=== PATIENT | male | born 1935 | race Caucasian/White ===

== ENCOUNTER 2016-12-08 09:36 | Emergency (ER) | payer MEDICARE, BC ==
--- NOTE | 2016-12-08 10:48 | EDM.PDOC ---
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 He states that he has had bilateral lower extremity neuropathy, as well as bilateral upper extremity neuropathy, in a stocking-glove pattern for the past 3 or 4 years, thought secondary to chemotherapy him and as such, he ordinarily walks with a cane, however, he is now having difficulty doing that. He discussed his thigh weakness with his Oncologist, Dr. Hinds, on Wednesday, 2016. No tests were done, but physical therapy was recommended, which the patient underwent one week ago, 12/01/2016. The patient states that the physical therapist found atrophy. Ultrasound therapy was given, which the patient states made his symptoms worse - he states that he was able to walk into the physical therapy facility, but not out. He then followed up with his PCP, Yolanda Ruelas, this past , 12/03/2016. She recommended that the patient discontinue his Crestor, and prescribed for him Flexeril. Neither of these have helped. The patient then spoke to his physical therapist that same day, who discussed the case with Ms. Ruelas, and they recommended that the patient see an orthopedic surgeon. The patient has a prior relationship with Dr. Jacques, however, the patient thought that he needed to come here in order to see Dr. Jacques. The patient denies injury to his right lower extremity. 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 He is currently on Opdivo, which itsself has an incidence of less than or equal to 14% peripheral neuropathy and less than or equal to 56% weakness. The patient reports that he had a laminectomy related to lumbar stenosis, and 2006. Right Upper Leg Pain Score (Numeric/FACES): 10 - Related Data Allergies Allergy/AdvReac Type Severity Reaction Status Date / Time Sulfa (Sulfonamide Allergy Rash Verified 07/31/13 10:04 Antibiotics) Home Meds: Home Meds FLUoxetine [PROzac] 1 cap PO DAILY 07/31/13 [History] Felodipine [Felodipine ER] 1 tab PO DAILY 07/31/13 [History] Multivitamin [Daily Multiple Vitamin] 1 tab PO DAILY 07/31/13 [History] Pentoxifylline [TRENtal] 2 tab PO BID 07/31/13 [History] Amoxicillin/Clavulanate K [Augmentin 875 MG/125 MG] 1 tab PO BID 12/08/16 [ History] Calcium Carbonate [Calcium] 2 tab PO DAILY 12/08/16 [History] Cyclobenzaprine [Flexeril] 0.5 - 1 tab PO Q8HR PRN 12/08/16 [History] Denosumab [Xgeva] 1 injection SQ ASDIRECTED 12/08/16 [History] Furosemide [Lasix Oral Soln] 10 mg PO DAILY 12/08/16 [History] Meloxicam [Mobic] 1 tab PO DAILY 12/08/16 [History] Nivolumab [Opdivo] 10 mg IV ASDIRECTED 12/08/16 [History] Omeprazole 1 tab PO ACBREAKFAST 12/08/16 [History] Pregabalin [Lyrica] 1 cap PO BID 12/08/16 [History] Tamsulosin [Flomax] 0.4 mg PO BID 12/08/16 [History] Past Medical History HEENT History: Reports: Impaired Vision Cardiovascular History: Reports: High Cholesterol, Hypertension Respiratory History: Reports: Sleep Apnea (nightly CPAP) Musculoskeletal History: Reports: Osteoarthritis Psychiatric History: Reports: Depression Oncologic (Cancer) History: Reports: Lung (Stage IV), Prostate - Past Surgical History HEENT Surgical History: Reports: Cataract Surgery, Oral Surgery ([place] teeth extraction), Tonsillectomy GI Surgical History: Reports: Appendectomy, Other (See Below) (Biliary stent) Neurological Surgical History: Reports: C-Spine (ACDF), Lumbar Spine ( Laminectomy 2006) Musculoskeletal Surgical History: Reports: Knee Replacement (left), Other (See Below) (Right patella repair) Social & Family History - Family History Family Medical History: Noncontributory - Tobacco Use Tobacco Use Within Last Twelve Months: Pipe Years of Tobacco use: 50 - Alcohol Use Alcohol Use History: Yes Alcohol Use Frequency: Socially - Recreational Drug Use Recreational Drug Use: No - Living Situation & Occupation Living situation: Reports: Single, Other ([facility]) 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) Review of Systems - Review of Systems Review Of Systems: See Below Constitutional: Reports: No Symptoms Eyes: Reports: No Symptoms Ears: Reports: No Symptoms Nose: Reports: No Symptoms Mouth/Throat: Reports: No Symptoms Respiratory: Reports: No Symptoms Cardiovascular: Reports: No Symptoms GI/Abdominal: Reports: No Symptoms Genitourinary: Reports: No Symptoms Musculoskeletal: Reports: No Symptoms Skin: Reports: No Symptoms Neurological: Reports: No Symptoms Psychiatric: Reports: No Symptoms ED EXAM, GENERAL - Physical Exam Exam: See Below Exam Limited By: No Limitations General Appearance: Alert, WD/WN, No Apparent Distress Extremities: Other (No significant tenderness to palpation of the anterior or posterior right thigh.) Neurological: Alert, Oriented, Normal Cognition, Other (Weakness to flexion of the right hip and extension of the right knee, when compared to the left. The patient reports decreased sensation in a stocking-glove pattern to his bilateral upper and bilateral lower extremities.) Psychiatric: Normal Affect Skin Exam: Warm, Dry, Intact, Normal Color, No Rash Course - Vital Signs Last Recorded V/S: Last Vital Signs Temp 36.3 C 12/08/16 09:41 Pulse 68 12/08/16 09:41 Resp 16 12/08/16 09:41 BP 152/77 H 12/08/16 09:41 Pulse Ox 100 12/08/16 09:41 - Orders/Labs/Meds Labs: Laboratory Tests 12/08/16 Range/Units 11:15 Creatine Kinase 35 L (39-308) U/L - Re-Assessments/Exams Free Text/Narrative Re-Assessment/Exam: 12/08/16 11:59 The patient's CPK returned low, at 35. While this does not rule out 10-induced myopathy, it significantly lowers the likelihood that that is the cause. Based on the patient's history and physical examination, I suspect that the patient's symptoms are due lumbar stenosis with nerve impingement. This would be confirmed by a MRI, not available from the ED. I am recommending that the patient follow-up with Dr. Jacques for further evaluation, which may include a MRI of the lumbar spine. 12/08/16 12:[address] Jacques at 12:02. He agrees that the patient's symptoms are most likely due to spinal stenosis with nerve impingement. He does not recommend that I treat with steroids, as had been suggested by the patient's Oncologist, Dr. Hinds. He is not recommending any other tests today. He would like to see the patient in follow-up for initial evaluation with possible referral to a spinal surgeon. Departure - Departure Time of Disposition: 12:00 Disposition: Home, Self-Care 01 Condition: Fair Clinical Impression: Weakness of right lower extremity - Discharge Information Referrals: Yolanda Ruelas NP [Primary Care Provider] - Chris Jacques MD [Physician] - Forms: ED Department Discharge Additional Instructions: You were seen in the emergency room for weakness and discomfort of your right thigh. Workup in the ER included a measurement of your muscle enzymes, which returned as normal. While this does not completely eliminate the possibility of statin- induced myopathy (muscle breakdown due to your cholesterol medicine), it significantly reduces the likelihood. Based on your history and physical examination, it is MOST LIKELY that your symptoms are due to progressive spinal stenosis and pinching of the nerves going to your thigh. We recommend that you follow-up with the Orthopedic Surgeon Dr. Jacques for evaluation, that may include a MRI of your lower back. If any other problems, please do not hesitate to return to the ER.
== END 2016-12-08 12:40 | disposition home or self-care (01) ==
LOC: JD.ED 09:36
DX: R29.898 Other symptoms and signs involving the musculoskeletal system (principal); E78.00 Pure hypercholesterolemia, unspecified; I10 Essential (primary) hypertension; F32.9 Major depressive disorder, single episode, unspecified; Z88.2 Allergy status to sulfonamides
CPT/HCPCS: 36415; 82550; 99283

== ENCOUNTER 2017-06-24 13:49 | Emergency (ER) | payer MEDICARE, BC ==
--- NOTE | 2017-06-24 14:21 | EDM.PDOC ---
ED HPI GENERAL MEDICAL PROBLEM - General Chief Complaint: Gastrointestinal Problem Stated Complaint: VOMITING AND UNABLE TO URINATE Time Seen by Provider: 06/24/17 14:19 Source of Information: Reports: Patient History Limitations: Reports: No Limitations - History of Present Illness INITIAL COMMENTS - FREE TEXT/NARRATIVE: 81-year-old male presents to the ED in the accompaniment of a friend. 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 Patient states he suffers from primary lung cancer left lung 7 years. Has been on chemotherapy for most of this duration. Tumor does not appear to be regressing with oral tablet Optiva and then he has subsequent restarted chemotherapy around a second. This is his first dose. Yesterday he had marked ascites and had 3 L of fluid aspirated by way of paracentesis . This is his third time that is required this. He reports 3 L the first time 3700 mils the second time in 3 L yesterday. 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 He received radiation therapy at that time. He also has known prostate cancer which is being treated with no treatment at this time. Patient has had developed increased troubles urinating the last for 5 days since he received his chemotherapy. Over 600 mils in his bladder on last occasion. Today he's not been able to produce any urine. He feels lightheaded dizzy upon standing is very weak. Associated nausea and vomiting 2 of clearish liquid. No bowel movement today. Denies any abdominal pain and fact he states he feels much better since the paracentesis. He has a chronic cough of which he states is clearish phlegm. No hemoptysis no worse than his normal. He is therefore an immunocompromised patient. Onset: Today Onset Date: 06/24/17 Onset Time: 08:00 (Vomited twice this morning. Unable to stand for any per time because it becomes so weak and lightheaded. Clinically he is febrile but he did not recognize this. He states he has the occasional very short lived chills. No formal rigors.) Duration: Hour(s): Location: Reports: Generalized (Generalized sense of illness with nausea and vomiting 2) Quality: Reports: Other Severity: Moderate (Generalized weakness.) Improves with: Reports: None Worsens with: Reports: Other (Standing or trying to walk. Difficulty getting to the bathroom.) Context: Reports: Other (Patient had paracentesis done yesterday with removal of 3 L of abdominal fluid. Has chronic ascites. He has known left-sided liver cancer with metastatic disease. Last chemotherapy was given intravenously on June 16.). Denies: Activity, Exercise, Lifting, Sick Contact, Trauma Associated Symptoms: Reports: Cough, cough w sputum (Chronic cough of clear phlegm air. No hemoptysis), Fever/Chills (Intermittent chills last 24 hours), Loss of Appetite, Malaise, Nausea/Vomiting (Twice this morning of mostly clearish fluid with slight bile staining. ), Shortness of Breath. 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) (None as no medications will stay down.) Abdominal Pain Score (Numeric/FACES): 3 - Related Data Allergies Allergy/AdvReac Type Severity Reaction Status Date / Time Sulfa (Sulfonamide Allergy Rash Verified 06/24/17 14:04 Antibiotics) Home Meds: Home Meds FLUoxetine [PROzac] 1 cap PO DAILY 07/31/13 [History] Felodipine [Felodipine ER] 1 tab PO DAILY 07/31/13 [History] Multivitamin [Daily Multiple Vitamin] 1 tab PO DAILY 07/31/13 [History] Pentoxifylline [TRENtal] 2 tab PO BID 07/31/13 [History] Calcium Carbonate [Calcium] 2 tab PO DAILY 12/08/16 [History] Denosumab [Xgeva] 120 mg SQ ASDIRECTED 12/08/16 [History] Meloxicam [Mobic] 1 tab PO DAILY 12/08/16 [History] Nivolumab [Opdivo] 10 mg IV ASDIRECTED 12/08/16 [History] Omeprazole 1 tab PO ACBREAKFAST 12/08/16 [History] Pregabalin [Lyrica] 1 cap PO BID 12/08/16 [History] Tamsulosin [Flomax] 0.4 mg PO BID 12/08/16 [History] Acetaminophen 1,000 mg PO BID 06/24/17 [History] Cholecalciferol (Vitamin D3) [Vitamin D3] 2,000 unit PO DAILY 06/24/17 [History] Fenofibrate 160 mg PO BEDTIME 06/24/17 [History] Garlic Capsule. 1 cap PO DAILY 06/24/17 [History] Gluc/Hamzah-Msm#2/C/D3/Aram/Born [Afomnmqzhw-Xyzfsbixvmg-WDX] 1 tab PO BID [History] Hydrocodone/Acetaminophen [Hydrocodon-Acetaminophen 5-325] 2 tab PO Q6H PRN 12/02 [History] Loperamide. 1 cap PO ASDIRECTED PRN 06/24/17 [History] Loratadine [Claritin] 10 mg PO BEDTIME 06/24/17 [History] Magnesium Oxide 400 mg PO DAILY 06/24/17 [History] Melatonin. 5 mg PO ASDIRECTED 06/24/17 [History] Rosuvastatin [Crestor] 10 mg PO BEDTIME 06/24/17 [History] oxyCODONE HCl/Acetaminophen [Oxycodone-Acetaminophen 5-325] 1 oz PO Q6H PRN 12/02 [History] Past Medical History HEENT History: Reports: Impaired Vision Cardiovascular History: Reports: High Cholesterol, Hypertension Respiratory History: Reports: Sleep Apnea Other Respiratory History: Lung canger Other Gastrointestinal History: Liver and gallbladder cancer Genitourinary History: Reports: BPH (With known to have 100 250 mils of urine in his bladder postvoid. Has never had full urinary retention.) Other Genitourinary History: Prostate cancer Musculoskeletal History: Reports: Osteoarthritis Psychiatric History: Reports: Depression Hematologic History: Reports: Other (See Below) Other Hematologic History: Pancytopenia r/t chemo Oncologic (Cancer) History: Reports: Lung (Left lung cancer 7 years with known metastatic disease to the liver producing ascites.), Metastatic (Had cancer of the duodenum 19 years ago which required surgical resection and then treated with radiotherapy. Considered cleared from this disease process), Prostate (Has known prostate cancer which is being not treated. It is felt with his age it is a slow growing tumor.) Other Dermatologic History: Skin problems from chemo - Past Surgical History HEENT Surgical History: Reports: Cataract Surgery, Oral Surgery, Tonsillectomy GI Surgical History: Reports: Appendectomy, Other (See Below) Neurological Surgical History: Reports: C-Spine, Lumbar Spine Musculoskeletal Surgical History: Reports: Knee Replacement, Other (See Below) Social & Family History - Family History Family Medical History: Noncontributory - Recreational Drug Use Recreational Drug Use: No - Living Situation & Occupation Living situation: Reports: Single, Other ([place]) 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 Denies: Fever HEENT: Reports: Glasses (For reading), Other (Dry mouth) Respiratory: Reports: Shortness of Breath, Cough, Sputum (Clear phlegm chronic) . Denies: Hemoptysis Cardiovascular: Reports: Dyspnea on Exertion ( Tonic lower extremity edema.), Edema (Very lightheaded dizzy today. Unable to stand or walk without aid.), Lightheadedness. Denies: Chest Pain, Blood Pressure Problem, Claudication, Orthopnea, Palpitations ( Chronic dyspnea on minimal exertion.), PND, Syncope Endocrine: Reports: Fatigue GI/Abdominal: Reports: Abdominal Pain (Abdominal pain much relieved after paracentesis done yesterday.), Decreased Appetite, Distension, Nausea, Vomiting (Vomited twice so far this morning). Denies: Flatus, Hematemesis (Has chronic ascites), Hematochezia, Melena, Stool Incontinence, Other : Reports: Frequency, Other (Nocturia usually 3 or 4 times per night.) Musculoskeletal: Reports: Back Pain, Joint Pain (Knees hips and neck at times sometimes both shoulders as well.) Skin: Reports: No Symptoms Neurological: Reports: No Symptoms Psychiatric: Reports: No Symptoms Hematologic/Lymphatic: Reports: No Symptoms Immunologic: Reports: No Symptoms ED EXAM, GI/ABD - Physical Exam Exam: See Below Exam Limited By: No Limitations General Appearance: Alert, WD/WN, No Apparent Distress, Other (He is warm to palpation. Nurses got temperature 37.18 feels warmer than this.) Eyes: Bilateral: Normal Appearance (No scleral icterus.) Throat/Mouth: Other (Tongue is moderately dry and shrunken.) Head: Atraumatic, Normocephalic Neck: Normal Inspection, Supple, Non-Tender, Full Range of Motion, Other (There is no supraclavicular or infraclavicular adenopathy.). No: Lymphadenopathy (L) , Lymphadenopathy (R) Respiratory/Chest: Respiratory Distress (Mild tachypnea at rest 20/m. O2 sats are 99% on room air.), Decreased Breath Sounds (Breath sounds are minimally decreased to both lower lung garcia), Rhonchi (Scattered rhonchi left lung.), Other (Port-A-Cath is present right anterior chest.). No: Rales, Wheezing Cardiovascular: Regular Rate, Rhythm, No Gallop, No Murmur, No Rub. No: No Edema GI/Abdominal Exam: Normal Bowel Sounds, Soft, Non-Tender, No Organomegaly, Distended (With fluid wave compatible with ascites.), Hepatomegaly, Other ( Liver is slightly tender to palpation and is palpable 1 fingerbreadth below the right costal margin.) Back Exam: Normal Inspection, Full Range of Motion. No: CVA Tenderness (L), CVA Tenderness (R) Extremities: Pedal Edema (2+ pitting edema both lower extremities.) Neurological: Alert, Oriented, CN II-XII Intact, Normal Cognition Psychiatric: Normal Affect, Normal Mood Skin Exam: Warm, Dry, Intact, Normal Color, No Rash Course - Vital Signs Last Recorded V/S: Last Vital Signs Temp 37.4 C 06/24/17 17:00 Pulse 70 06/24/17 17:00 Resp 20 06/24/17 17:00 BP 124/79 06/24/17 17:00 Pulse Ox 97 06/24/17 17:00 - Orders/Labs/Meds Orders: Active Orders 24 hr Category Date Time Status EKG Documentation Completion [RC] STAT Care 06/24/17 14:40 Active Chest 1V Frontal [CR] Stat Exams 06/24/17 14:40 Taken CULTURE BLOOD [BC] Stat Lab 06/24/17 15:10 Received CULTURE BLOOD [BC] Stat Lab 06/24/17 15:10 Received PRO B-TYPE NATRIUR PEPT,BNPPRO [CHEM] Stat Lab 06/24/17 14:41 Ordered Dextrose 5%-0.9% NaCl [Dextrose 5%-Normal Saline] 1,000 Med 06/24/17 14:45 Active ml IV ASDIRECTED Blood Culture x2 Reflex Set [OM.PC] Stat Oth 06/24/17 14:41 Ordered Medication Orders Dextrose/Sodium Chloride (Dextrose 5%-Normal Saline) 1,000 mls @ 150 mls/hr IV ASDIRECTED CANDE Last Admin: 06/24/17 15:02 Dose: 150 mls/hr Labs: Laboratory Tests 06/24/17 06/24/17 06/24/17 Range/Units 15:00 15:00 15:00 WBC 0.94 L* (4.23-9.07) K/mm3 RBC 2.70 L (4.63-6.08) M/mm3 Hgb 8.3 L (13.7-17.5) gm/L Hct 26.3 L (40.1-51.0) % MCV 97.4 H (79.0-92.2) fl MCH 30.7 (25.7-32.2) pg MCHC 31.6 L (32.2-35.5) g/dl RDW Std Deviation 57.3 H (35.1-43.9) fL Plt Count 42 L (163-337) K/mm3 MPV TNP Neutrophils % (Manual) 18 L (40-60) % Band Neutrophils % 0 (0-10) % Lymphocytes % (Manual) 32 (20-40) % Atypical Lymphs % 0 % Monocytes % (Manual) 50 H (2-10) % Eosinophils % (Manual) 0 L (0.8-7.0) % Basophils % (Manual) 0 L (0.2-1.2) Nucleated RBCs 3.0 % Platelet Estimate Marked dec Hypochromasia 3+ marked Anisocytosis 3+ marked Microcytosis 2+ moderate RBC Morph Comment Abnormal ESR (0-15) mm/hr PT 12.9 H (9.5-12.1) SECONDS INR 1.19 Sodium 138 (136-145) mEq/L Potassium 4.2 (3.5-5.1) mEq/L Chloride 102 (98-107) mEq/L Carbon Dioxide 26 (21-32) mEq/L Anion Gap 14.2 (5-15) BUN 29 H (7-18) mg/dL Creatinine 1.5 H (0.7-1.3) mg/dL Est Cr Clr Drug Dosing 36.10 mL/min Estimated GFR (MDRD) 45 (>60) mL/min BUN/Creatinine Ratio 19.3 H (14-18) Glucose 180 H (83-115) mg/dL Calcium 9.7 (8.5-10.1) mg/dL Magnesium 1.8 (1.8-2.4) mg/dl Total Bilirubin 0.5 (0.2-1.0) mg/dL AST 13 L (15-37) U/L ALT 16 (16-63) U/L Alkaline Phosphatase 75 (46-116) U/L Troponin I < 0.017 (0.00-0.056) ng/mL C-Reactive Protein 24.2 H* (<1.0) mg/dL Total Protein 5.3 L (6.4-8.2) g/dl Albumin 2.1 L (3.4-5.0) g/dl Globulin 3.2 gm/dL Albumin/Globulin Ratio 0.7 L (1-2) Lipase (73-393) U/L Urine Color (Yellow) Urine Appearance (Clear) Urine pH (5.0-8.0) Ur Specific Reynolds (1.005-1.030) Urine Protein (Negative) Urine Glucose (UA) (Negative) Urine Ketones (Negative) Urine Occult Blood (Negative) Urine Nitrite (Negative) Urine Bilirubin (Negative) Urine Urobilinogen (0.2-1.0) Ur Leukocyte Esterase (Negative) Urine RBC (0-5) /hpf Urine WBC (0-5) /hpf Ur Epithelial Cells (0-5) /hpf Urine Bacteria (FEW) /hpf Urine Mucus (FEW) /hpf 06/24/17 06/24/17 06/24/17 Range/Units 15:00 15:00 15:20 WBC (4.23-9.07) K/mm3 RBC (4.63-6.08) M/mm3 Hgb (13.7-17.5) gm/L Hct (40.1-51.0) % MCV (79.0-92.2) fl MCH (25.7-32.2) pg MCHC (32.2-35.5) g/dl RDW Std Deviation (35.1-43.9) fL Plt Count (163-337) K/mm3 MPV Neutrophils % (Manual) (40-60) % Band Neutrophils % (0-10) % Lymphocytes % (Manual) (20-40) % Atypical Lymphs % % Monocytes % (Manual) (2-10) % Eosinophils % (Manual) (0.8-7.0) % Basophils % (Manual) (0.2-1.2) Nucleated RBCs % Platelet Estimate Hypochromasia Anisocytosis Microcytosis RBC Morph Comment ESR 73 H (0-15) mm/hr PT (9.5-12.1) SECONDS INR Sodium (136-145) mEq/L Potassium (3.5-5.1) mEq/L Chloride (98-107) mEq/L Carbon Dioxide (21-32) mEq/L Anion Gap (5-15) BUN (7-18) mg/dL Creatinine (0.7-1.3) mg/dL Est Cr Clr Drug Dosing mL/min Estimated GFR (MDRD) (>60) mL/min BUN/Creatinine Ratio (14-18) Glucose (83-115) mg/dL Calcium (8.5-10.1) mg/dL Magnesium (1.8-2.4) mg/dl Total Bilirubin (0.2-1.0) mg/dL AST (15-37) U/L ALT (16-63) U/L Alkaline Phosphatase (46-116) U/L Troponin I (0.00-0.056) ng/mL C-Reactive Protein (<1.0) mg/dL Total Protein (6.4-8.2) g/dl Albumin (3.4-5.0) g/dl Globulin gm/dL Albumin/Globulin Ratio (1-2) Lipase 42 L (73-393) U/L Urine Color Yellow (Yellow) Urine Appearance Clear (Clear) Urine pH 5.5 (5.0-8.0) Ur Specific Reynolds 1.020 (1.005-1.030) Urine Protein Negative (Negative) Urine Glucose (UA) Negative (Negative) Urine Ketones Negative (Negative) Urine Occult Blood Negative (Negative) Urine Nitrite Negative (Negative) Urine Bilirubin Negative (Negative) Urine Urobilinogen 0.2 (0.2-1.0) Ur Leukocyte Esterase Negative (Negative) Urine RBC 0-5 (0-5) /hpf Urine WBC 0-5 (0-5) /hpf Ur Epithelial Cells 0-5 (0-5) /hpf Urine Bacteria Not seen (FEW) /hpf Urine Mucus Few (FEW) /hpf Meds: Medications Generic Name Dose Route Start Last Admin Trade Name Freq PRN Reason Stop Dose Admin Dextrose/Sodium Chloride 1,000 mls @ 150 mls/hr 06/24/17 14:45 06/24/17 15:02 Dextrose 5%-Normal Saline IV 150 mls/hr ASDIRECTED CANDE Administration Discontinued Medications Generic Name Dose Route Start Last Admin Trade Name Rolly PRN Reason Stop Dose Admin Acetaminophen 975 mg 06/24/17 14:40 06/24/17 15:05 Tylenol PO 06/24/17 14:41 Not Given NOW ONE Levofloxacin/Dextrose 750 mg/ 150 mls @ 100 mls/hr 06/24/17 15:38 06/24/17 16 :10 Premix IV 06/24/17 17:07 100 mls/hr ONETIME ONE Administration Lidocaine HCl 10 ml 06/24/17 14:53 06/24/17 15:17 Xylocaine 2% Jelly MUCMEM 06/24/17 14:54 10 ml ONETIME ONE Administration Metoclopramide HCl 7.5 mg 06/24/17 14:52 06/24/17 15:16 Reglan IVPUSH 06/24/17 14:53 7.5 mg ONETIME ONE Administration - Radiology Interpretation Free Text/Narrative:: 81-year-old male presents to the ED for evaluation of nausea and vomiting 2 this morning. Of note the patient is chronically on with left lung cancer 7 years. Recently stopped oral tablet treatment and received first dose of chemotherapy June 16. His oncologist is Dr. Hinds in [place]. Patient has known prostate cancer with some degree of urinary retention. He is on previous duodenal cancer 19 years ago treated with primary surgical resection and radiotherapy. Patient has a chronic cough no worse than normal. He had paracentesis done yesterday with removal of 3 L of fluid from his abdomen and he states this feels much improved. Now he has room to breathe. This is third time is required paracentesis. Is due to metastatic disease to his liver. On examination he is febrile indicating underlying infective process. Question whether he could've be developing pneumonia due to cancer in his left lung. Urinary retention secondary to known prostate cancer and prostatism. He is feeling very lightheaded dizzy and on is unable to stand or walk alone today. There is no doubt there is going to be some fluid shifts after the paracentesis done yesterday and spacing part of his blood volume. Plan IV D5 normal saline at 150 mils per hour. Her pressure is satisfactory at this time. Will give Reglan 7.5 g IV for nausea relief. Apparently he took 1000 mg of Tylenol at noon today and it stayed down. He will have a chest x-ray and urine obtained by catheterization routine labs and blood cultures 2. Tentatively he will be admitted to the hospital either here or in [place]. - Re-Assessments/Exams Free Text/Narrative Re-Assessment/Exam: 06/24/17 15:13 portable chest x-ray is been completed. He does reveal some nodularity within the left lung. There is streaky infiltrate left upper lobe but not enough to call and pneumonia. Similarly there appears to be some streaky infiltrate below the Port-A-Cath right lower lobe again I think vascular pattern. 06/24/17 16:24 Lab panels are back. His white count is very low at 0.94 with 18 neutrophils and no bands reported. Hemoglobin is very low at 8.3 with hematocrit of 26.3. Platelet count is 42,000. Of note this is post chemotherapy 8 days ago. He has 50% monocytes reported on the manual differential slide. 3+ hypochromasia 3+ and a cytosis 2+ microcytosis. Sedimentation rate is elevated at 73. PT is 12.9 with an INR of 1.19. Sodium is 138 with a potassium of 4.2. Chloride is 102 with a bicarbonate of 26. Glucose is 180 mildly elevated calcium is 9.7. Magnesium 1.8. Total bilirubin 0.5 with an AST of 13. A LTS 16. Alk phosphatase normal at 75. Troponin I is less than 0.017. C-reactive protein is markedly elevated at 24.2. Total protein is low at 5.3 with an albumin fraction of 2.1. Urinalysis is pending. 06/24/17 16:50 I have spoken with our hospitalist-- Dr. Garcia about admission here but she feels he is too ill for are small institution. In fact require of course blood transfusion and perhaps platelet transfusion. He is better served in a larger institution. The patient has records in [facility] in [place] and prefers to be transferred to that institution. I will await the results of his urinalysis and then make appropriate arrangements tentatively to be admitted to [facility] in [place]. 06/24/17 17:09 Urinalysis collected by catheterization is negative for infective process. 06/24/17 18:10: Spoke with hospitalist at [facility] in [place] Dr. Osorio and she has accepted care of Mr. Sheikh. He will be transported by ground ambulance. 06/24/17 18:28 just prior to being transported patient had incontinence of stool. He was not aware that he had to defecate. Departure - Departure Time of Disposition: 18:30 Disposition: DC/Tfer to [facility] 02 Condition: Serious Clinical Impression: Pancytopenia due to antineoplastic chemotherapy, Acute febrile illness, Nausea and vomiting in adult patient Lung cancer Qualifiers: Laterality: left Lung location: overlapping sites Qualified Code(s): C34.82 - Malignant neoplasm of overlapping sites of left bronchus and lung - Discharge Information Referrals: Yolanda Ruelas NP [Primary Care Provider] - Forms: ED Department Discharge Additional Instructions: Patient transferred to [facility] in [place] [facility] due to pancytopenia and possibility of need for blood products and platelets. Acute febrile illness secondary to chemotherapy with pancytopenia. Source of infection is not yet evident. - My Orders Last 24 Hours: My Active Orders 06/24/17 14:40 EKG Documentation Completion [RC] STAT Chest 1V Frontal [CR] Stat 06/24/17 14:41 PRO B-TYPE NATRIUR PEPT,BNPPRO [CHEM] Stat Blood Culture x2 Reflex Set [OM.PC] Stat 06/24/17 14:45 Dextrose 5%-0.9% NaCl [Dextrose 5%-Normal Saline] 1,000 ml IV ASDIRECTED 06/24/17 15:10 CULTURE BLOOD [BC] Stat CULTURE BLOOD [BC] Stat - Assessment/Plan Last 24 Hours: My Active Orders 06/24/17 14:40 EKG Documentation Completion [RC] STAT Chest 1V Frontal [CR] Stat 06/24/17 14:41 PRO B-TYPE NATRIUR PEPT,BNPPRO [CHEM] Stat Blood Culture x2 Reflex Set [OM.PC] Stat 06/24/17 14:45 Dextrose 5%-0.9% NaCl [Dextrose 5%-Normal Saline] 1,000 ml IV ASDIRECTED 06/24/17 15:10 CULTURE BLOOD [BC] Stat CULTURE BLOOD [BC] Stat
[2017-06-24] MEDS ORDERED: Dextrose 5%-0.9% NaCl 1,000 ML IV SCH (14:45)
[2017-06-24] MEDS ORDERED: Metoclopramide 10 MG/2 ML SDV IVPUSH ONE (14:52)
[2017-06-24] MEDS ORDERED: Lidocaine 2% Jelly 10 ML Urojet MUCMEM ONE (14:53)
[2017-06-24] MEDS: Acetaminophen 325 MG Tab PO ONE ×2 (15:02→15:05)
[2017-06-24] MEDS ORDERED: Levofloxacin/Dextrose 5%-Water 750 MG in Premix Bag 1 BAG IV ONE (15:38)
--- NOTE | 2017-06-25 09:51 | CR ---
Chest: Frontal view of the chest was obtained. Prior chest x-ray of 04/30/[address] of 04/30/11. Right-sided infusion port is seen which is an interval change from previous exam. Previous lower cervical spine surgery is noted which is also an interval change. Scoliosis and degenerative spurring is noted within the spine. Heart size at the upper limits of normal. Mild tortuosity of the thoracic aorta is seen. Nodular density is noted within the left upper lung which correlates to a mass on CT exam of 04/30/11, this appears slightly smaller on current chest x-ray measuring about 1.6 cm comparing to 2.1 cm on previous chest x-ray. Lungs otherwise are clear. Impression: 1. Nodule within the left upper chest slightly decreased in size from previous chest x-ray and chest CT. 2. Other incidental findings as noted above. Nothing acute is seen. Diagnostic code #3
== END 2017-06-24 18:40 ==
LOC: JD.ED 13:49
DX: D61.810 Antineoplastic chemotherapy induced pancytopenia (principal); R11.2 Nausea with vomiting, unspecified; R06.02 Shortness of breath; R50.9 Fever, unspecified; C34.82 Malignant neoplasm of overlapping sites of left bronchus and lung; E78.00 Pure hypercholesterolemia, unspecified; I10 Essential (primary) hypertension; Z88.2 Allergy status to sulfonamides; Z79.899 Other long term (current) drug therapy
CPT/HCPCS: 36415; 71045; 80053; 81001; 83690; 83735; 83880; 84484; 85007; 85027; 85610; 85652; 86140; 87040; 93005; 96361; 96365; 96375; 99285; J1956; J2765; J7042; 93010; A9270-GY